=== PATIENT | male | born 1965 | race Caucasian/White ===

== ENCOUNTER 2017-01-06 12:52 | Emergency (ER) | payer BC, OTHER ==
[2017-01-06 12:59] VITALS: BP 119/72
--- NOTE | 2017-01-06 13:34 | UC ---
Rashaun Tan Thomas, [facility] for [facility] on 01/06/17 at 1326 . Ear Complaint HPI - HPI Summary HPI Summary: The pt is a 51 y/o M presenting to [facility] c/o ear pain that began 4 days ago. He reports a chronic ear infection that recurs every few months. His last infection before this was 4 months ago. He says that he normally receives an oral antibiotic for treatment. The patient denies recent swimming. The pain is described as stabbing. The pt rates the pain 2/10. The pain is aggravated and alleviated by nothing. The patient has treated the pain with nothing [employer]. PMHx: chronic right ear infection, RBBB, ventricular septal defect (closed), benign essential tremor, enlarged aorta. PSHx: appendectomy, sinus surgery 20 years ago. SHx: former smoker. FHx: CAD, CVA. His PCP is Dr. Durand. Note: VS Stable. 2/10 pain. Afebrile. Visit history noncontributory. Allergic to erythromycin. Nurses Note: righr ear pain for the last 4 days. States he has a chronic infection of the ear drum. he states his ear drum turns amin. he gets an infection every couple of months. he tried to see his pcp today but could not get in. - History of Current Complaint Chief Complaint: UCEar Stated Complaint: EAR PAIN Time Seen by Provider: 01/06/17 13:11 Hx Obtained From: Patient Onset/Duration: Lasting Days - 4, Still Present Pain Intensity: 2 Pain Scale Used: 0-10 Numeric Aggravating Factors: Nothing Alleviating Factors: Nothing Related History: Other (Noted In Comments) - Chronic ear infections. - Allergies/Home Medications Allergies/Adverse Reactions: Allergies Allergy/AdvReac Type Severity Reaction Status Date / Time Clarithromycin [From Biaxin] Allergy See Comment Verified 01/06/17 12:59 Home Medications: Home Medications Atenolol TAB* [Tenormin TAB* 25 MG] 12.5 mg PO BID 01/06/17 [History Confirmed 01/06/17] PMH/Surg Hx/FS Hx/Imm Hx Previously Healthy: No - chronic ear infections Cardiovascular History: Other Other Cardiovascular History: VSD (closed), RBBB, enlarged aorta Neurological History: Other Other Neurological History: Essential tremor - Surgical History Surgical History: Yes Surgery Procedure, Year, and Place: SINUS 20 YRS AGO, APPY AT AGE 9,HERNIA 1999 - Family History Known Family History: Positive: Cardiac Disease, Other - POS: CVA - Social History Alcohol Use: None Substance Use Type: None Smoking Status (MU): Former Smoker Review of Systems Constitutional: Negative, Other - NEG: fever Skin: Negative Eyes: Negative ENT: Ear Ache - onset four days ago. Respiratory: Negative Cardiovascular: Negative Gastrointestinal: Negative Genitourinary: Negative Motor: Negative Neurovascular: Negative Musculoskeletal: Negative Neurological: Negative Psychological: Negative All Other Systems Reviewed And Are Negative: Yes Physical Exam Triage Information Reviewed: Yes Vital Signs: Initial Vital Signs Temp 97.3 F 01/06/17 12:55 Pulse 61 01/06/17 12:55 Resp 14 01/06/17 12:55 BP 119/72 01/06/17 12:55 Vital Signs Reviewed: Yes - Additional Comments Appearance: The patient is well-appearing, is in no pain distress, and is well- nourished. Eyes: Conjunctiva are clear. ENT: THERE IS PARTIAL ERYTHEMA TO THE RIGHT TYMPANIC MEMBRANE. The hearing is grossly normal, and the pharynx is normal. There is no muffled or hoarse voice. Neck: The neck is supple and nontender. Respiratory: The chest is nontender. The lungs are clear, there are normal breath sounds, and there is no respiratory distress. Cardiovascular: Heart is regular rate and rhythm. There is no murmur. Abdomen: The abdomen is soft and nontender. There is no organomegaly. Bowel sounds: present Musculoskeletal: Strength is intact. The patient moves all extremities. Neurological: The patient is alert. Psychological: The patient displays age appropriate behavior Skin: Negative for rashes. Ear Complaint Course/Dx - Course Course Of Treatment: The patient has a Hx of chronic ear infections and presents with ear pain that began 4 days ago. Medications have been included in the original chart and reviewed. Normal BP. The patient is diagnosed with right otitis media. - Differential Dx/Diagnosis Provider Diagnoses: Right otitis media Discharge - Discharge Plan Condition: Stable Disposition: HOME Prescriptions: Amoxicillin PO (*) [Amoxicillin 875 MG (*)] 875 mg PO BID #20 tab MDD 2 Patient Education Materials: Otitis Media (ED) Referrals: Chichi Durand MD [Primary Care Provider] - Additional Instructions: WE DISCUSSED: 1. You have a right ear infection. 2. One amoxicillin, 2 times a day for 10 days. Also see instructions below. Follow up with your doctor for any new symptoms or temperature. COUGH, CONGESTION of CHEST, SINUSES OR EARS: The most important goal is to liquefy all the phlegm and get it out of your head and chest. Any illness causing cough, congestion, sore throat or sinus discomfort can be helped by doing the following: STAND UNDER SHOWER STREAM TO LOOSEN SECRETIONS. STAY AWAY FROM ANY SMOKE OR IRRITANTS. WHAT ELSE CAN HELP RELIEVE YOUR SYMPTOMS: GENERAL TYPES OF MEDICINE THAT MAY HELP DECONGESTANTS: helps relieve stuffiness and clears sinuses. Pseudoephedrine ( Sudafed or generic) is effective but you need to ask the pharmacist for it because it may be kept behind the counter. ANTIHISTAMINES: are NOT helpful in many colds and flus because they can worsen sore throat, dry eyes and mouth and cause drowsiness. Examples are diphenhydramine, doxylamine and chlorpheniramine. They can help dry you out if you are having profuse, clear drainage from the nose. EXPECTORANTS: helps thin mucous in the nose and chest, making it easier to clear the fluid out. Expectorants are in most combination cough/cold remedies and should be taken with plenty of water. Guaifenesin is the most common expectorant and it comes in pill or liquid form. Mucinex is an extended release form of guaifenesin. COUGH SUPPRESANT: reduces the body's cough reflex. Dextromethorphan is in over the counter products, but sometimes narcotics such as codeine or hydrocodone are used to suppress cough. SPECIFIC MEDICATIONS: The most important goal is to liquefy all the phlegm and get it out of your head and chest: The following medicines (in prescription form or you can buy them without prescription) may help: To help with cough: DEXTROMETHORPHAN (Vicks, Robitussin, Nyquil and other brands) To help break up phlegm: GUAIFENESIN (Mucinex, Robitussin, other brands) To help clear congestion: PSEUDOEPHEDRINE (Sudafed, Dimetapp, other brands) TRY TO CLEAR NOSE: AFRIN NASAL SPRAY: 2-3 SPRAYS PER NOSTRIL, TWICE A DAY FOR TWO DAYS ONLY. USEFUL WAYS TO FEEL BETTER WITHOUT MEDICATIONS: STAND UNDER SHOWER STREAM TO LOOSEN SECRETIONS. USE A VAPORIZOR. STAY AWAY FROM ANY SMOKE OR IRRITANTS. USE SALINE NASAL SPRAY TO KEEP FLOW OF MUCOUS FROM NOSTRILS AND SINUSES. CONSIDER USING NETI POT TO HELP WITH ALLERGIES AND CONGESTION IN THE NOSE. USE THIS THREE TIMES A WEEK. YOU CAN GET THIS AT [facility] IN [place] OR VARIOUS DRUGSTORES. DRINK LOTS OF WARM FLUIDS USEFUL HOME REMEDIES: WARM WATER GARGLES, WITH TSP OF SALT PER 8 OUNCES OF WATER, GARGLE FOR A FEW SECONDS AND SPIT OUT; GARGLE AND SPIT OUT; EVERY THREE HOURS. AND/OR: WARM WATER OR TEA, HONEY AND LEMON; 2-3 CUPS A DAY. FOR SORE THROAT: KEEP THROAT MOIST WITH LOZENGES; TEA AND HONEY. USE WARM WATER GARGLES 3-4 TIMES A DAY. FOLLOW UP: RE-CHECK IN 1O DAYS, NEEDED, IF YOU ARE NOT IMPROVING. RETURN HERE OR SEE YOUR PHYSICIAN. RE-CHECK SOONER IF INCREASED PAIN OR TEMPERATURE. The documentation as recorded by the Rashaun phma Thomas accurately reflects the service I personally performed and the decisions made by me, Chaz Noriega MD.
== END 2017-01-06 13:40 | disposition home or self-care (01) ==
LOC: UCEAST 12:52
DX: H66.91 Otitis media, unspecified, right ear (principal); Q21.0 Ventricular septal defect; I45.10 Unspecified right bundle-branch block; G25.0 Essential tremor; Z88.1 Allergy status to other antibiotic agents; Z87.891 Personal history of nicotine dependence
CPT/HCPCS: 99212; G0463

== ENCOUNTER 2017-07-07 13:41 | Emergency (ER) | payer BC ==
[2017-07-07 13:52] VITALS: BP 158/83
--- NOTE | 2017-07-07 14:02 | UC ---
Ear Complaint HPI - HPI Summary HPI Summary: Pt presents with ears feeling plugged L>R. He tells me this has been an issue for months, but he feels it is getting worse. He has tried claritin, nasal sprays, and neti pots with no relief. He was on amoxicillin at one time which provided him great relief, but symptoms returned. He has seen ENT in the past, but did not like the doctor he saw so he did not return - he is currently searching for another ENT. He has also been seen by audiology which was normal per pt. Denies fever, chills, headache, dizziness, sore throat, or sinus congestion. - History of Current Complaint Chief Complaint: UCEar Stated Complaint: EARS PLUGGED COUGH Time Seen by Provider: 07/07/17 14:02 Hx Obtained From: Patient Onset/Duration: Gradual Onset Severity Initially: Mild Severity Currently: Mild Pain Intensity: 2 Pain Scale Used: 0-10 Numeric - Allergies/Home Medications Allergies/Adverse Reactions: Allergies Allergy/AdvReac Type Severity Reaction Status Date / Time clarithromycin [From Biaxin] Allergy See Comment Verified 07/07/17 13:47 Home Medications: Home Medications Bupropion XL* [Wellbutrin XL *] 300 mg PO DAILY 07/07/17 [History Confirmed 10/19] DULoxetine DR CAP* [Cymbalta CAP*] 20 mg PO DAILY 07/07/17 [History Confirmed ] Lisinopril TAB* [Prinivil TAB*] 5 mg PO DAILY 07/07/17 [History Confirmed ] amLODIPine TAB* [Norvasc 5 mg TAB*] 10 mg PO DAILY 07/07/17 [History Confirmed 07/07/17] guaiFENesin [Mucinex] 600 mg PO BID PRN 07/07/17 [History Confirmed 07/07/17] PMH/Surg Hx/FS Hx/Imm Hx Endocrine History: Dyslipidemia Cardiovascular History: Hypertension Respiratory History: COPD, Asthma GI/ History: Gastroesophageal Reflux - Surgical History Surgical History: Yes Surgery Procedure, Year, and Place: SINUS 20 YRS AGO, APPY AT AGE 9,HERNIA 2000 - Family History Known Family History: Positive: Cardiac Disease, Other - POS: CVA - Social History Lives: With Family Alcohol Use: None Substance Use Type: None Smoking Status (MU): Former Smoker Review of Systems Constitutional: Negative Skin: Negative Eyes: Negative ENT: Other - Ears plugged Respiratory: Negative Cardiovascular: Negative Neurological: Negative Psychological: Negative All Other Systems Reviewed And Are Negative: Yes Physical Exam - Summary Physical Exam Summary: GENERAL: NAD. WDWN. No pain distress. SKIN: No rashes, sores, ulcers, masses, lesions. HEENT: Head: AT/NC Eyes: EOM intact. Conjunctiva clear without inflammation or discharge. Ears: Hearing grossly normal. TMs intact, no bulging, erythema, or edema. Nose: Nasal mucosa pink and moist. NTTP maxillary and frontal sinus. Throat: Posterior oropharynx without exudates, erythema, or tonsillar enlargement. Uvula midline. NECK: Supple. Nontender. No lymphadenopathy. CHEST: CTAB. No r/r/w. No accessory muscle use. Breathing comfortably and in no distress. CV: RRR. Pulses intact. Brisk cap refill. NEURO: Alert. CN II-XII grossly intact. PSYCH: Age appropriate behavior. Triage Information Reviewed: Yes Vital Signs: Initial Vital Signs Temp 97.7 F 07/07/17 13:43 Pulse 85 07/07/17 13:43 Resp 16 07/07/17 13:43 BP 158/83 07/07/17 13:43 Pulse Ox 97 07/07/17 13:43 Ear Complaint Course/Dx - Course Course Of Treatment: He has tried and failed multiple OTC and prescription treatments except for amoxicillin. Although there is no evidence of infection today, I will trial him with Augmentin since Amoxicillin is the only treatment that has provided him some relief. I will also refer him to Dr. Gómez for further eval - Differential Dx/Diagnosis Provider Diagnoses: Right ear decreased hearing Discharge - Discharge Plan Condition: Stable Disposition: HOME Prescriptions: Amoxicillin/Clavulanate TAB* [Augmentin TAB 875*] 875 mg PO BID #20 tab Patient Education Materials: Earache (ED) Referrals: Chichi Durand MD [Primary Care Provider] - Sung Gómez MD [Medical Doctor] - As Soon As Possible Additional Instructions: If you develop a fever, shortness of breath, chest pain, new or worsening symptoms - please call your PCP or go to the ED. Your blood pressure was high at todays visit. Please see your primary provider within 4 weeks for recheck and re-evaluation. 1) Please schedule a follow up appointment with ENT at the number below for your continued decreased hearing and earache.
== END 2017-07-07 14:20 | disposition home or self-care (01) ==
LOC: UCEAST 13:41
DX: H90.41 Sensorineural hearing loss, unilateral, right ear, with unrestricted hearing on the contralateral side (principal); E78.5 Hyperlipidemia, unspecified; I10 Essential (primary) hypertension; J44.9 Chronic obstructive pulmonary disease, unspecified; K21.9 Gastro-esophageal reflux disease without esophagitis; Z88.1 Allergy status to other antibiotic agents; Z87.891 Personal history of nicotine dependence
CPT/HCPCS: 99212; G0463

== ENCOUNTER 2019-01-11 12:31 | Emergency (ER) | payer BC ==
[2019-01-11 12:45] VITALS: BP 149/84
--- NOTE | 2019-01-11 13:28 | UC ---
General HPI - HPI Summary HPI Summary: Pleasant 53 yo gentleman presents with spouse, c/o n/v since Thursday (today is Thursday). No fever / chills. No diarrhea, brbpr, melena. No new urinary sx, although has been followed by Dr. Washington for hematuria. Denies abd pain currently but does report some periodic discomfort in R side of abdomen. No back pain. + hx childhood appedectomy with peritonitis, s/p laparotomy. Has had episodic n/v since October, but not this bad. Has been taking tegretol, last 3 weeks. Does not feel like this is a contributing issue, has not changed in nature since starting tegretol. Also reported to RN that he has been bruising more. Also reports R frontal h/a (minimal now, but was bad last week). Followed by ENT Dr. Lucia, has order for CT sinuses, which he will have done in the next couple weeks. - History of Current Complaint Chief Complaint: UCGeneralIllness Stated Complaint: NAUSEA / VOMITING / HEADACHE / BRUISING Time Seen by Provider: 01/11/19 12:41 Hx Obtained From: Patient, Family/Ivory Carver Pain Intensity: 7 - Allergy/Home Medications Allergies/Adverse Reactions: Allergies Allergy/AdvReac Type Severity Reaction Status Date / Time clarithromycin [From Biaxin] Allergy See Comment Verified 01/11/19 12:45 Home Medications: Home Medications ALPRAZolam [Xanax] 1 tab PO DAILY PRN 01/11/19 [History Confirmed 01/11/19] Acetaminophen [Mapap] 2 tab PO Q6HR PRN 01/11/19 [History Confirmed 01/11/19] Carbamazepine [Tegretol] 1 tab PO BID PRN 01/11/19 [History Confirmed 01/11/19] Fexofenadine (NF) [Jodie (NF)] 1 tab PO DAILY PRN 01/11/19 [History Confirmed 01/11/19] PMH/Surg Hx/FS Hx/Imm Hx Previously Healthy: No - see hpi and pmh - Surgical History Surgical History: Yes Surgery Procedure, Year, and Place: SINUS 20 YRS AGO, APPY AT AGE 9,HERNIA 1999 - Family History Known Family History: Positive: Cardiac Disease, Other - POS: CVA - Social History Alcohol Use: None Substance Use Type: None Smoking Status (MU): Former Smoker Review of Systems All Other Systems Reviewed And Are Negative: Yes Constitutional: Positive: Fatigue Skin: Positive: Bruising Eyes: Positive: Negative ENT: Positive: Other - see hpi Respiratory: Positive: Negative Cardiovascular: Positive: Negative - although reports that he sometimes gets palpitations not now Gastrointestinal: Positive: Other - see hpi Genitourinary: Positive: Other - see hpi Motor: Positive: Negative Neurovascular: Positive: Negative Musculoskeletal: Positive: Negative Neurological: Positive: Negative Psychological: Positive: Negative Is Patient Immunocompromised?: No Physical Exam Triage Information Reviewed: Yes Appearance: Well-Appearing - sitting up, conversing easily and appropriately. NAD., Well-Nourished Vital Signs: Initial Vital Signs Temp 97.8 F 01/11/19 12:38 Pulse 76 01/11/19 12:38 Resp 18 01/11/19 12:38 BP 149/84 01/11/19 12:38 Pulse Ox 95 01/11/19 12:38 Vital Signs Reviewed: Yes Eye Exam: Normal - grossly normal ENT: Positive: Pharynx normal, TM dull Neck exam: Normal Neck: Positive: Supple Respiratory Exam: Normal Respiratory: Positive: Chest non-tender, Lungs clear, Normal breath sounds, No respiratory distress, No accessory muscle use Cardiovascular Exam: Normal Cardiovascular: Positive: RRR, Brisk Capillary Refill Abdominal Exam: Other - + mild obese, soft, nondistended. No cvat. RLQ + large surgical scar with citricazation well formed. + BS, normal but slightly hyperactive Abd nontender to exam includind deep pressure Musculoskeletal Exam: Normal - moves x 4 ext's, gait steady Neurological Exam: Normal - grossly nonfocal Psychological Exam: Normal - conversing easily and appropriately Skin Exam: Normal - no visible or reported rash. without large hematoma noted. He does have some smaller bruising on forearms. Course/Dx - Course Course Of Treatment: Discussed coa / tx plan with pt and spouse. He does not want to go to the ED. Has several questions about workup. He is considering a CT (as prior ordered), but denies CT head / sinus here today. Agrees to blood work today, plans to f/u with PCP this week for re-evaluation and blood work review. Aware that with hx abd surgery and multiple adhesions, he could have internal problematic process that we can not directly dx with blood work. He will go to the ED for any worse or new problems. and Ms. Orozco were given the opportunity to ask several insightful questions, to which I answered to the best of my ability. - Diagnoses Provider Diagnosis: Nausea & vomiting Discharge ED - Sign-Out/Discharge Documenting (check all that apply): Patient Departure All imaging exams completed and their final reports reviewed: No Studies - Discharge Plan Condition: Stable Disposition: HOME Prescriptions: Meclizine TAB* [Antivert 12.5 TAB*] 25 mg PO TID PRN #30 tab PRN Reason: Nausea Patient Education Materials: Acute Headache (ED), Acute Nausea and Vomiting (ED ) Referrals: Chichi Durand MD [Primary Care Provider] - Additional Instructions: Follow up with Dr. Mitchell this week if possible, for recheck. Blood work today. Please go to the Emergency Department for worse or new problems. Hydrate. - Billing Disposition and Condition Condition: STABLE Disposition: Home
[2019-01-11 19:15] LABS: ABS Basophils 0.1 10^3/ul (0-0.2); ABS Eosinophils 0.1 10^3/ul (0-0.6); ABS Lymphocytes 1.8 10^3/ul (1.0-4.8); ABS Monocytes 0.7 10^3/ul (0-0.8); ABS Neutrophils 3.4 10^3/ul (1.5-7.7); Eosinophil % 1.6 %; Hematocrit 43 % (42-52); Hemoglobin 15.1 g/dL (14.0-18.0); Lymphocyte % 29.5 %; Mean Corpuscular HGB Conc 35 g/dL (31-36); Mean Corpuscular Hemoglobin 33 pg (27-31); Mean Corpuscular Volume 94 fL (80-94); Mean Platelet Volume 7.2 fL (7.4-10.4); Platelet Count 361 10^3/uL (150-450); Red Blood Count 4.63 10^6 /uL (4.18-5.48); Red Cell Distribution Width 13 % (10-15); White Blood Count 6.2 10^3/uL (3.5-10.8)
[2019-01-11 19:26] LABS: Albumin 4.4 g/dL (3.2-5.2); Calcium 9.3 mg/dL (8.6-10.3); Potassium 4.3 mmol/L (3.5-5.0); Total Bilirubin 0.4 mg/dL (0.2-1.0)
[2019-01-11 19:32] LABS: Albumin/Globulin Ratio 2.1 (1-3); BUN/Creatinine Ratio 15.9 (8-20); C Reactive Protein 1.56 mg/L (<8.01); EGFR African American 145.1 (>60); EGFR Non-African American 119.9 (>60); Globulin 2.1 g/dL (2-4); Total Protein 6.5 g/dL (6.4-8.9)
== END 2019-01-11 13:52 | disposition home or self-care (01) ==
LOC: UCEAST 12:31
DX: R11.2 Nausea with vomiting, unspecified (principal); Z87.891 Personal history of nicotine dependence
CPT/HCPCS: 36415; 80053; 83690; 85025; 86140; 99212; G0463

== ENCOUNTER 2019-02-16 14:22 | Emergency (ER) | payer BC ==
[2019-02-16 14:32] VITALS: BP 130/80
--- NOTE | 2019-02-16 15:15 | UC ---
UC General HPI - HPI Summary HPI Summary: 53-year-old male here with a chief complaint of headache and abdominal pain. In October 2018 patient started with right sided frontal headaches that were compared with nausea and vomiting which then led to right upper quadrant abdominal pain. Each episode lasts about a day or day and a half. He has a couple of these every month. He seen his primary care physician and had a normal head CT with and without contrast on February 11, 2019. Also had abdominal x-rays done today. Both of these were ordered outpatient by his primary care doctor. Patient also has abdominal ultrasound ordered by his primary care physician. This particular episode of the headache and abdominal pain started 2 days ago. At its worst the headache as 7 out of 10 in the abdominal pain similar. No fevers or chills. His symptoms are much improved this morning now has headaches about a 2 out of 10 which he says is negligible. No complaint of any abdominal pain. He has been able to eat this morning. Patient still has his gallbladder. Patient has a history of migraine headaches in the trigeminal distribution on the right side is on Tegretol for that. These headaches are similar distribution however there more focal in the right frontal area. Also similar in character. - History of Current Complaint Chief Complaint: UCGI Stated Complaint: vomiting and abdominal pain Pain Intensity: 5 - Allergy/Home Medications Allergies/Adverse Reactions: Allergies Allergy/AdvReac Type Severity Reaction Status Date / Time clarithromycin [From Biaxin] Allergy See Comment Verified 02/16/19 14:33 PMH/Surg Hx/FS Hx/Imm Hx Previously Healthy: Yes Cardiovascular History: Hypertension Neurological History: Migraine - Surgical History Surgical History: Yes Surgery Procedure, Year, and Place: SINUS 20 YRS AGO, APPY AT AGE 9, umbilical HERNIA 1999 - Family History Known Family History: Positive: Cardiac Disease, Other - POS: CVA - Social History Alcohol Use: None Substance Use Type: None Smoking Status (MU): Former Smoker Review of Systems All Other Systems Reviewed And Are Negative: Yes Constitutional: Positive: Negative Skin: Positive: Bruising Eyes: Positive: Other - see hpi ENT: Positive: Negative Respiratory: Positive: Negative Cardiovascular: Positive: Negative Gastrointestinal: Positive: Abdominal Pain, Vomiting, Nausea Genitourinary: Positive: Negative Motor: Positive: Negative Neurovascular: Positive: Negative Musculoskeletal: Positive: Negative Neurological: Positive: Headache Psychological: Positive: Negative Is Patient Immunocompromised?: No Physical Exam Triage Information Reviewed: Yes Appearance: Well-Appearing, No Pain Distress, Well-Nourished Vital Signs: Initial Vital Signs Temp 97.8 F 02/16/19 14:26 Pulse 81 02/16/19 14:26 Resp 18 02/16/19 14:26 BP 130/80 02/16/19 14:26 Pulse Ox 97 02/16/19 14:26 Vital Signs Reviewed: Yes Eye Exam: Normal Eyes: Positive: Conjunctiva Clear, Other: - PERRLA EOMI no photophobia. No visual field deficits. ENT: Positive: Pharynx normal, TMs normal Neck: Positive: Supple Respiratory: Positive: Lungs clear, Normal breath sounds, No respiratory distress Cardiovascular: Positive: RRR Abdomen Description: Positive: Soft, Other: - Mild tenderness to palpation right upper quadrant no rebound. Musculoskeletal: Positive: Strength Intact, ROM Intact Neurological: Positive: Alert Psychological: Positive: Normal Response To Family, Age Appropriate Behavior Skin Exam: Normal Course/Dx - Course Course Of Treatment: In clinic patients improved from his most recent episode of the headache in the right upper quadrant pain. The plan is to check lab work. Patient satisfied with his outpatient ultrasound going through his primary care doctor and not doing an ultrasound today. Labs are pending are CBC, CMP, lipase, cretin kinase , PT/INR, Tegretol and Geodon. At this time the patient's vital signs are stable his pain is minimal he's tolerating by mouth. I let him know that if anything got worse with fevers pain or any other worsening of his symptoms he should go directly to the emergency department otherwise he'll follow-up his primary care physician. - Diagnoses Provider Diagnosis: Headache, Abdominal pain, right upper quadrant Discharge ED - Sign-Out/Discharge Documenting (check all that apply): Patient Departure All imaging exams completed and their final reports reviewed: No Studies - Discharge Plan Condition: Stable Disposition: HOME Patient Education Materials: Acute Headache (ED), Acute Abdominal Pain (ED) Referrals: Chichi Durand MD [Primary Care Provider] - Additional Instructions: FOLLOW UP WITH YOUR DOCTOR. GO TO THE EMERGENCY DEPARTMENT IF YOUR CONDITION WORSENS; PAIN, FEVER, DEHYDRATION, YOU FEEL ILL OR ANY QUESTIONS OR CONCERNS. - Billing Disposition and Condition Condition: STABLE Disposition: Home
== END 2019-02-16 15:45 | disposition home or self-care (01) ==
LOC: UCEAST 14:22
DX: R51 Headache (principal); I10 Essential (primary) hypertension; R10.11 Right upper quadrant pain; R11.2 Nausea with vomiting, unspecified; Z88.1 Allergy status to other antibiotic agents; Z87.891 Personal history of nicotine dependence
CPT/HCPCS: 99211; G0463

== ENCOUNTER 2020-03-09 20:53 | Inpatient (IN) ==
[~2020-03-09 20:53] MED LIST: Al Hydrox/Mg Hydrox/Simet LIQ 30 ML UDC PO PRN
[2020-03-09] MEDS ORDERED: Haloperidol 5 mg/ml SDV IV/IM 5 MG/ML AMP IM ONE (22:15)
[2020-03-09] MEDS ORDERED: diPHENhydraMINE IV 50 MG/ML 1 ml VIAL (BENADRYL) IM ONE (22:15)
[2020-03-09] MEDS ORDERED: Lorazepam PYXIS KEY PRN (22:16)
[2020-03-09] MEDS ORDERED: LORazepam 2 mg VIAL 1 ml IM ONE (22:16)
[2020-03-09] MEDS ORDERED: Lorazepam PYXIS KEY ONE (22:22)
[2020-03-09 23:21] LABS: ABS Basophils 0.1 10^3/ul (0-0.2); ABS Eosinophils 0.4 10^3/ul (0-0.6); ABS Monocytes 1.1 10^3/ul (0-0.8); ABS Neutrophils 10.3 10^3/ul (1.5-7.7); Eosinophil % 3.2 %; Hematocrit 42 % (42-52); Hemoglobin 14.6 g/dL (14.0-18.0); Lymphocyte % 7.9 %; Mean Corpuscular HGB Conc 35 g/dL (31-36); Mean Corpuscular Hemoglobin 33 pg (27-31); Mean Corpuscular Volume 95 fL (80-94); Mean Platelet Volume 7.3 fL (7.4-10.4); Platelet Count 320 10^3/uL (150-450); Red Cell Distribution Width 13 % (10-15); White Blood Count 12.9 10^3/uL (3.5-10.8)
[2020-03-09 23:48] LABS: ALT 18 U/L (7-52); AST 19 U/L (13-39); Acetaminophen < 15 mcg/mL; Albumin 3.8 g/dL (3.2-5.2); Albumin/Globulin Ratio 1.4 (1-3); Alcohol, S < 10 mg/dL (<10); Alkaline Phosphatase 64 U/L (34-104); Anion Gap 6 mmol/L (2-11); BUN/Creatinine Ratio 23.3 (8-20); Blood Urea Nitrogen 17 mg/dL (6-24); CO2 Carbon Dioxide 28 mmol/L (22-32); Calcium 9.4 mg/dL (8.6-10.3); Chloride 104 mmol/L (101-111); EGFR African American 135.5 (>60); Globulin 2.7 g/dL (2-4); Glucose 115 mg/dL (70-100); Potassium 3.9 mmol/L (3.5-5.0); Salicylate < 2.50 mg/dL (<30); Sodium 138 mmol/L (135-145); Total Protein 6.5 g/dL (6.4-8.9)
[2020-03-10 00:02] LABS: TSH Ultra Thyroid Stim Horm 1.37 mcIU/mL (0.34-5.60)
[2020-03-10] MEDS ORDERED: Nicotine GUM 2MG FRUIT FLAVOR PO PRN (03:00)
[2020-03-10] MEDS: DULoxetine DR 30 mg CAP PO SCH (09:57)
[2020-03-10] MEDS: Fluticasone NASAL SPRAY 50MCG 16 gm SPRAY BTL BOTH NARES SCH ×2 (09:57→20:57)
[2020-03-10] MEDS: Vitamin THERAPEUTIC TAB PO SCH (09:57)
[2020-03-10] MEDS: Cholecalciferol (VIT D3) 1,000 unit TAB PO SCH (09:57)
[2020-03-10] MEDS: carBAMazepine ER 100mg TAB PO SCH ×2 (09:57→20:57)
[2020-03-10] MEDS: FLUOCINOLONE ACETONIDE OIL OTIC SCH ×2 (09:58→21:05)
[2020-03-10] MEDS: BREXPIPRAZOLE 2 MG PO SCH (09:58)
[2020-03-10] MEDS: Nicotine PATCH 21 MG/24 HR PATCH TRANSDERM SCH (09:58)
[2020-03-11] MEDS: DULoxetine DR 30 mg CAP PO SCH (08:32)
[2020-03-11] MEDS: Vitamin THERAPEUTIC TAB PO SCH (08:33)
[2020-03-11] MEDS: Cholecalciferol (VIT D3) 1,000 unit TAB PO SCH (08:34)
[2020-03-11] MEDS: BREXPIPRAZOLE 2 MG PO SCH (08:35)
[2020-03-11] MEDS: carBAMazepine ER 100mg TAB PO SCH ×2 (08:35→20:31)
[2020-03-11] MEDS: Fluticasone NASAL SPRAY 50MCG 16 gm SPRAY BTL BOTH NARES SCH ×2 (08:36→20:34)
[2020-03-11] MEDS: Nicotine PATCH 21 MG/24 HR PATCH TRANSDERM SCH (08:37)
[2020-03-11] MEDS: FLUOCINOLONE ACETONIDE OIL OTIC SCH ×2 (09:51→19:13)
[2020-03-12] MEDS: BREXPIPRAZOLE 2 MG PO SCH (09:45)
[2020-03-12] MEDS: carBAMazepine ER 100mg TAB PO SCH (09:46)
[2020-03-12] MEDS: Vitamin THERAPEUTIC TAB PO SCH (09:48)
[2020-03-12] MEDS: Cholecalciferol (VIT D3) 1,000 unit TAB PO SCH (09:48)
[2020-03-12] MEDS: FLUOCINOLONE ACETONIDE OIL OTIC SCH ×2 (09:49→21:43)
[2020-03-12] MEDS: Nicotine PATCH 21 MG/24 HR PATCH TRANSDERM SCH (09:49)
[2020-03-12] MEDS: Fluticasone NASAL SPRAY 50MCG 16 gm SPRAY BTL BOTH NARES SCH (09:49)
[2020-03-13] MEDS: carBAMazepine ER 100mg TAB PO SCH ×3 (00:28→21:05)
[2020-03-13] MEDS: Fluticasone NASAL SPRAY 50MCG 16 gm SPRAY BTL BOTH NARES SCH ×3 (00:29→21:04)
[2020-03-13 08:05] LABS: HDL Cholesterol 44.2 mg/dL
[2020-03-13] MEDS ORDERED: BREXPIPRAZOLE 2 MG PO SCH (09:00)
[2020-03-13] MEDS: BREXPIPRAZOLE 2 MG PO SCH (09:44)
[2020-03-13] MEDS: Cholecalciferol (VIT D3) 1,000 unit TAB PO SCH (09:50)
[2020-03-13] MEDS: Nicotine PATCH 21 MG/24 HR PATCH TRANSDERM SCH (09:51)
[2020-03-13] MEDS: FLUOCINOLONE ACETONIDE OIL OTIC SCH ×2 (09:51→19:33)
[2020-03-13] MEDS: Vitamin THERAPEUTIC TAB PO SCH (12:42)
[2020-03-14] MEDS: Fluticasone NASAL SPRAY 50MCG 16 gm SPRAY BTL BOTH NARES SCH ×2 (08:38→20:42)
[2020-03-14] MEDS: Vitamin THERAPEUTIC TAB PO SCH (08:38)
[2020-03-14] MEDS: Cholecalciferol (VIT D3) 1,000 unit TAB PO SCH (08:40)
[2020-03-14] MEDS: carBAMazepine ER 100mg TAB PO SCH ×2 (08:41→20:40)
[2020-03-14] MEDS: FLUOCINOLONE ACETONIDE OIL OTIC SCH ×2 (08:42→21:17)
[2020-03-14] MEDS: Nicotine PATCH 21 MG/24 HR PATCH TRANSDERM SCH (08:42)
[2020-03-14] MEDS: BREXPIPRAZOLE 2 MG PO SCH (08:42)
[2020-03-15] MEDS: Fluticasone NASAL SPRAY 50MCG 16 gm SPRAY BTL BOTH NARES SCH ×2 (09:52→20:13)
[2020-03-15] MEDS: BREXPIPRAZOLE 2 MG PO SCH ×2 (09:54→20:11)
[2020-03-15] MEDS: carBAMazepine ER 100mg TAB PO SCH ×2 (09:56→20:10)
[2020-03-15] MEDS: Cholecalciferol (VIT D3) 1,000 unit TAB PO SCH (09:56)
[2020-03-15] MEDS: Vitamin THERAPEUTIC TAB PO SCH (09:57)
[2020-03-15] MEDS: Nicotine PATCH 21 MG/24 HR PATCH TRANSDERM SCH (09:59)
[2020-03-15] MEDS: FLUOCINOLONE ACETONIDE OIL OTIC SCH ×2 (10:00→20:35)
[2020-03-16] MEDS: Cholecalciferol (VIT D3) 1,000 unit TAB PO SCH (09:25)
[2020-03-16] MEDS: carBAMazepine ER 100mg TAB PO SCH ×2 (09:25→20:46)
[2020-03-16] MEDS: Vitamin THERAPEUTIC TAB PO SCH (09:25)
[2020-03-16] MEDS: BREXPIPRAZOLE 2 MG PO SCH (09:26)
[2020-03-16] MEDS: Fluticasone NASAL SPRAY 50MCG 16 gm SPRAY BTL BOTH NARES SCH ×2 (09:28→20:47)
[2020-03-16] MEDS: FLUOCINOLONE ACETONIDE OIL OTIC SCH ×2 (09:28→20:49)
[2020-03-16] MEDS: Nicotine PATCH 21 MG/24 HR PATCH TRANSDERM SCH (09:28)
[2020-03-16] MEDS ORDERED: BREXPIPRAZOLE 2 MG PO ONE (10:36)
[2020-03-17] MEDS: carBAMazepine ER 100mg TAB PO SCH ×2 (07:55→20:04)
[2020-03-17] MEDS: Cholecalciferol (VIT D3) 1,000 unit TAB PO SCH (07:56)
[2020-03-17] MEDS: Vitamin THERAPEUTIC TAB PO SCH (07:56)
[2020-03-17] MEDS: Nicotine PATCH 21 MG/24 HR PATCH TRANSDERM SCH (07:56)
[2020-03-17] MEDS: Fluticasone NASAL SPRAY 50MCG 16 gm SPRAY BTL BOTH NARES SCH ×2 (07:56→20:04)
[2020-03-17] MEDS: FLUOCINOLONE ACETONIDE OIL OTIC SCH ×2 (07:56→21:20)
[2020-03-17] MEDS: BREXPIPRAZOLE 2 MG PO SCH (08:01)
[2020-03-18] MEDS: Fluticasone NASAL SPRAY 50MCG 16 gm SPRAY BTL BOTH NARES SCH ×2 (09:05→20:03)
[2020-03-18] MEDS: BREXPIPRAZOLE 2 MG PO SCH (09:05)
[2020-03-18] MEDS: carBAMazepine ER 100mg TAB PO SCH ×2 (09:05→20:03)
[2020-03-18] MEDS: Cholecalciferol (VIT D3) 1,000 unit TAB PO SCH (09:05)
[2020-03-18] MEDS: Vitamin THERAPEUTIC TAB PO SCH (09:06)
[2020-03-18] MEDS: Nicotine PATCH 21 MG/24 HR PATCH TRANSDERM SCH (09:06)
[2020-03-18] MEDS: FLUOCINOLONE ACETONIDE OIL OTIC SCH ×2 (09:06→20:07)
[2020-03-19] MEDS: Fluticasone NASAL SPRAY 50MCG 16 gm SPRAY BTL BOTH NARES SCH ×2 (08:52→20:46)
[2020-03-19] MEDS: BREXPIPRAZOLE 2 MG PO SCH (08:52)
[2020-03-19] MEDS: Cholecalciferol (VIT D3) 1,000 unit TAB PO SCH (08:53)
[2020-03-19] MEDS: carBAMazepine ER 100mg TAB PO SCH ×2 (08:53→20:45)
[2020-03-19] MEDS: Vitamin THERAPEUTIC TAB PO SCH (08:53)
[2020-03-19] MEDS: Nicotine PATCH 21 MG/24 HR PATCH TRANSDERM SCH (08:56)
[2020-03-19] MEDS: FLUOCINOLONE ACETONIDE OIL OTIC SCH ×2 (08:57→20:48)
[2020-03-20] MEDS: carBAMazepine ER 100mg TAB PO SCH (08:26)
[2020-03-20] MEDS: Vitamin THERAPEUTIC TAB PO SCH (08:28)
[2020-03-20] MEDS: Cholecalciferol (VIT D3) 1,000 unit TAB PO SCH (08:29)
[2020-03-20] MEDS: BREXPIPRAZOLE 2 MG PO SCH (08:29)
[2020-03-20] MEDS: Fluticasone NASAL SPRAY 50MCG 16 gm SPRAY BTL BOTH NARES SCH (08:31)
[2020-03-20] MEDS: Nicotine PATCH 21 MG/24 HR PATCH TRANSDERM SCH (08:33)
[2020-03-20] MEDS: FLUOCINOLONE ACETONIDE OIL OTIC SCH (08:33)
[2020-03-20 10:09] VITALS: BP 147/82
== END 2020-03-20 12:38 | disposition home or self-care (01) | DRG 750 ==
LOC: ED 20:53 → BSU 23:30
PROVIDERS: ADMIT Psychiatry & Neurology Psychiatry; ATTEND Psychiatry & Neurology Psychiatry

== ENCOUNTER 2020-10-30 14:34 | Inpatient (IN) ==
[2020-10-30 15:38] LABS: ABS Basophils 0.1 10^3/ul (0-0.2); ABS Eosinophils 0.6 10^3/ul (0-0.6); ABS Lymphocytes 1.5 10^3/ul (1.0-4.8); ABS Monocytes 1.1 10^3/ul (0-0.8); ABS Neutrophils 6.2 10^3/ul (1.5-7.7); Hematocrit 37 % (42-52); Hemoglobin 13.1 g/dL (14.0-18.0); Lymphocyte % 16.2 %; Mean Corpuscular HGB Conc 35 g/dL (31-36); Mean Corpuscular Hemoglobin 33 pg (27-31); Mean Corpuscular Volume 96 fL (80-94); Platelet Count 370 10^3/uL (150-450); Red Blood Count 3.92 10^6 /uL (4.18-5.48); Red Cell Distribution Width 14 % (10-15); White Blood Count 9.5 10^3/uL (3.5-10.8)
[2020-10-30 15:40] LABS: Urine Appearance Clear; Urine Bilirubin Negative (Negative); Urine Blood 1+ (Negative); Urine Color Yellow; Urine Glucose Negative (Negative); Urine Ketones Negative (Negative); Urine Nitrite Negative (Negative); Urine Protein Negative (Negative); Urine Specific Gravity 1.005 (1.002-1.030); Urine Urobilinogen Negative (Negative)
[2020-10-30 15:43] LABS: Urine Bacteria Absent (Absent); Urine Red Blood Cell Trace(0-2/hpf) (Absent); Urine Squamous Epithelial Cell Present (Absent); Urine White Blood Cell Absent (Absent)
[2020-10-30 16:09] LABS: TSH Ultra Thyroid Stim Horm 1.69 mcIU/mL (0.34-5.60)
[2020-10-30 16:16] LABS: ALT 16 U/L (7-52); AST 26 U/L (13-39); Albumin 3.8 g/dL (3.2-5.2); Albumin/Globulin Ratio 1.7 (1-3); Alkaline Phosphatase 80 U/L (35-149); Anion Gap 6 mmol/L (2-11); Blood Urea Nitrogen 10 mg/dL (6-24); CO2 Carbon Dioxide 29 mmol/L (22-32); Calcium 9.2 mg/dL (8.6-10.3); Chloride 103 mmol/L (101-111); EGFR African American 169.3 (>60); EGFR Non-African American 139.9 (>60); Globulin 2.3 g/dL (2-4); Glucose 132 mg/dL (70-100); Potassium 3.3 mmol/L (3.5-5.0); Sodium 138 mmol/L (135-145); Total Protein 6.1 g/dL (6.4-8.9)
[2020-10-30 16:19] LABS: Alcohol, S < 10 mg/dL (<10); Salicylate < 2.50 mg/dL (<30)
[2020-10-30 16:20] LABS: Acetaminophen < 15 mcg/mL; Urine Benzodiazepine Screen None Detected (None Detect); Urine Cannabinoids Screen None Detected (None Detect); Urine Opiates Screen None Detected (None Detect)
[2020-10-30] MEDS ORDERED: LORazepam 2 mg VIAL 1 ml ONE (17:23)
[2020-10-30] MEDS ORDERED: Lorazepam PYXIS KEY PRN (17:25)
[2020-10-30] MEDS ORDERED: LORazepam 2 mg VIAL 1 ml IM ONE (17:25)
[2020-10-30] MEDS ORDERED: Haloperidol 5 mg/ml SDV IV/IM 5 MG/ML AMP IM ONE (17:25)
[2020-10-30] MEDS ORDERED: diPHENhydraMINE IV 50 MG/ML 1 ml VIAL (BENADRYL) IM ONE (17:25)
[2020-10-30] MEDS ORDERED: Al Hydrox/Mg Hydrox/Simet LIQ 30 ML UDC PO PRN (22:14)
[2020-10-31] MEDS: Vitamin THERAPEUTIC TAB PO SCH ×2 (08:57→09:27)
[2020-10-31] MEDS: Potassium Chlor 10 meq TAB PO SCH (12:20)
[2020-10-31] MEDS ORDERED: BREXPIPRAZOLE 4 MG PO SCH (14:00)
[2020-10-31 19:52] LABS: Total Iron Binding Capacity 371 mcg/dL (250-450); Transferrin 265 mg/dL (203-362)
[2020-10-31 21:01] LABS: Free T4 1.11 ng/dL (0.61-1.12)
[2020-11-01] MEDS: Potassium Chlor 10 meq TAB PO SCH (09:25)
[2020-11-01] MEDS: Vitamin THERAPEUTIC TAB PO SCH (09:25)
[2020-11-01] MEDS: BREXPIPRAZOLE 2 MG PO SCH (12:59)
[2020-11-01 15:17] LABS: Albumin/Globulin Ratio 1.6 (1-3); Calcium 9.3 mg/dL (8.6-10.3); EGFR Non-African American 145.5 (>60); Globulin 2.5 g/dL (2-4); HDL Cholesterol 49.2 mg/dL; Potassium 3.9 mmol/L (3.5-5.0); Total Bilirubin 0.4 mg/dL (0.2-1.0); Total Protein 6.5 g/dL (6.4-8.9)
[2020-11-02] MEDS: BREXPIPRAZOLE 2 MG PO SCH (09:39)
[2020-11-02] MEDS: Potassium Chlor 10 meq TAB PO SCH (09:39)
[2020-11-02] MEDS: Vitamin THERAPEUTIC TAB PO SCH (09:40)
[2020-11-03] MEDS: Vitamin THERAPEUTIC TAB PO SCH (08:31)
[2020-11-03] MEDS: BREXPIPRAZOLE 2 MG PO SCH (08:31)
[2020-11-03] MEDS: Potassium Chlor 10 meq TAB PO SCH (08:31)
[2020-11-03] MEDS: Nicotine PATCH 7 MG/24 HR PATCH TRANSDERM SCH (20:22)
[2020-11-04] MEDS: Nicotine PATCH 7 MG/24 HR PATCH TRANSDERM SCH (07:47)
[2020-11-04] MEDS: BREXPIPRAZOLE 2 MG PO SCH (07:49)
[2020-11-04] MEDS: Potassium Chlor 10 meq TAB PO SCH (07:49)
[2020-11-04] MEDS: Vitamin THERAPEUTIC TAB PO SCH (07:49)
[2020-11-05] MEDS: Potassium Chlor 10 meq TAB PO SCH (09:33)
[2020-11-05] MEDS: Vitamin THERAPEUTIC TAB PO SCH (09:34)
[2020-11-05] MEDS: BREXPIPRAZOLE 2 MG PO SCH (09:34)
[2020-11-05] MEDS: Nicotine PATCH 7 MG/24 HR PATCH TRANSDERM SCH (09:35)
[2020-11-05] MEDS ORDERED: BREXPIPRAZOLE 0.5 MG PO ONE (10:04)
[2020-11-06] MEDS: Vitamin THERAPEUTIC TAB PO SCH (08:46)
[2020-11-06] MEDS: BREXPIPRAZOLE 2 MG PO SCH (08:46)
[2020-11-06] MEDS: BREXPIPRAZOLE 0.5 MG PO SCH (08:46)
[2020-11-06] MEDS: Potassium Chlor 10 meq TAB PO SCH (08:46)
[2020-11-06] MEDS: Nicotine PATCH 7 MG/24 HR PATCH TRANSDERM SCH (08:47)
[2020-11-07] MEDS: Potassium Chlor 10 meq TAB PO SCH (08:39)
[2020-11-07] MEDS: Vitamin THERAPEUTIC TAB PO SCH (08:39)
[2020-11-07] MEDS: BREXPIPRAZOLE 2 MG PO SCH (08:40)
[2020-11-07] MEDS: Nicotine PATCH 7 MG/24 HR PATCH TRANSDERM SCH (08:41)
[2020-11-07] MEDS: BREXPIPRAZOLE 0.5 MG PO SCH (09:35)
[2020-11-08 08:51] LABS: Calcium 9.6 mg/dL (8.6-10.3); EGFR Non-African American 145.5 (>60); Potassium 4.3 mmol/L (3.5-5.0)
[2020-11-08] MEDS: BREXPIPRAZOLE 0.5 MG PO SCH (10:15)
[2020-11-08] MEDS: BREXPIPRAZOLE 2 MG PO SCH (10:15)
[2020-11-08] MEDS: Potassium Chlor 10 meq TAB PO SCH (10:16)
[2020-11-08] MEDS: Nicotine PATCH 7 MG/24 HR PATCH TRANSDERM SCH (10:16)
[2020-11-08] MEDS: Vitamin THERAPEUTIC TAB PO SCH (10:16)
[2020-11-09] MEDS: BREXPIPRAZOLE 2 MG PO SCH (08:41)
[2020-11-09] MEDS: Potassium Chlor 10 meq TAB PO SCH (08:41)
[2020-11-09] MEDS: BREXPIPRAZOLE 0.5 MG PO SCH (08:41)
[2020-11-09] MEDS: Vitamin THERAPEUTIC TAB PO SCH (08:41)
[2020-11-09] MEDS: Nicotine PATCH 7 MG/24 HR PATCH TRANSDERM SCH (08:43)
[2020-11-09 21:02] LABS: ABS Lymphocytes 0.8 10^3/ul (1.0-4.8); ABS Monocytes 1.2 10^3/ul (0-0.8); ABS Neutrophils 5.8 10^3/ul (1.5-7.7); Eosinophil % 0.1 %; Hematocrit 43 % (42-52); Hemoglobin 14.5 g/dL (14.0-18.0); Lymphocyte % 10.4 %; Mean Corpuscular HGB Conc 34 g/dL (31-36); Mean Corpuscular Hemoglobin 33 pg (27-31); Mean Corpuscular Volume 95 fL (80-94); Mean Platelet Volume 6.9 fL (7.4-10.4); Platelet Count 329 10^3/uL (150-450); Red Blood Count 4.47 10^6 /uL (4.18-5.48); Red Cell Distribution Width 13 % (10-15); White Blood Count 7.8 10^3/uL (3.5-10.8)
[2020-11-09 21:24] LABS: Urine TP Concentration < 4 mg/dL
[2020-11-09 21:28] LABS: Urine Appearance Clear; Urine Bilirubin Negative (Negative); Urine Blood 2+ (Negative); Urine Color Straw; Urine Creatinine Concentration 19.28 mg/dL; Urine Glucose Negative (Negative); Urine Ketones Negative (Negative); Urine Nitrite Negative (Negative); Urine Protein Negative (Negative); Urine Specific Gravity 1.004 (1.002-1.030); Urine Urobilinogen Negative (Negative)
[2020-11-09 21:33] LABS: Urine Bacteria Absent (Absent); Urine Red Blood Cell Trace(0-2/hpf) (Absent); Urine White Blood Cell Absent (Absent)
[2020-11-10 15:56] LABS: ABS Lymphocytes 0.6 10^3/ul (1.0-4.8); ABS Monocytes 1.2 10^3/ul (0-0.8); ABS Neutrophils 5.5 10^3/ul (1.5-7.7); Eosinophil % 0.1 %; Hematocrit 43 % (42-52); Hemoglobin 14.9 g/dL (14.0-18.0); Lymphocyte % 8.4 %; Mean Corpuscular HGB Conc 35 g/dL (31-36); Mean Corpuscular Hemoglobin 33 pg (27-31); Mean Corpuscular Volume 94 fL (80-94); Mean Platelet Volume 7.1 fL (7.4-10.4); Platelet Count 297 10^3/uL (150-450); Red Blood Count 4.55 10^6 /uL (4.18-5.48); Red Cell Distribution Width 14 % (10-15); White Blood Count 7.3 10^3/uL (3.5-10.8)
[2020-11-10 16:13] LABS: Albumin 4.1 g/dL (3.2-5.2); Albumin/Globulin Ratio 1.5 (1-3); Calcium 9.6 mg/dL (8.6-10.3); EGFR African American 130.8 (>60); EGFR Non-African American 108.1 (>60); Globulin 2.8 g/dL (2-4); Magnesium 1.9 mg/dL (1.9-2.7); Potassium 3.6 mmol/L (3.5-5.0); Total Bilirubin 0.4 mg/dL (0.2-1.0); Total Protein 6.9 g/dL (6.4-8.9)
[2020-11-10 16:14] LABS: CRP High Sensitivity 83.3 mg/L (<2.00); Troponin I 0.01 ng/mL (<0.03)
[2020-11-10 16:38] LABS: Urine Appearance Clear; Urine Bilirubin Negative (Negative); Urine Blood 2+ (Negative); Urine Color Straw; Urine Glucose Negative (Negative); Urine Ketones Negative (Negative); Urine Nitrite Negative (Negative); Urine Protein Negative (Negative); Urine Specific Gravity 1.002 (1.002-1.030); Urine Urobilinogen Negative (Negative)
[2020-11-10 16:40] LABS: Urine Amorphous Crystals Present (Absent); Urine Bacteria Absent (Absent); Urine Red Blood Cell Trace(0-2/hpf) (Absent); Urine Squamous Epithelial Cell Present (Absent); Urine White Blood Cell Absent (Absent)
[2020-11-10] MEDS ORDERED: Lactated Ringers 1000 ml BAG 1,000 ML IV ONE (16:41)
[2020-11-10] MEDS: BREXPIPRAZOLE 0.5 MG PO SCH (17:14)
[2020-11-10] MEDS: BREXPIPRAZOLE 2 MG PO SCH (17:14)
[2020-11-10] MEDS: Potassium Chlor 10 meq TAB PO SCH (17:15)
[2020-11-10] MEDS: Nicotine PATCH 7 MG/24 HR PATCH TRANSDERM SCH (17:15)
[2020-11-10] MEDS: Vitamin THERAPEUTIC TAB PO SCH (17:16)
[2020-11-11 07:28] LABS: ABS Lymphocytes 0.6 10^3/ul (1.0-4.8); ABS Monocytes 1.2 10^3/ul (0-0.8); Eosinophil % 0.1 %; Hematocrit 43 % (42-52); Lymphocyte % 7.4 %; Mean Corpuscular HGB Conc 35 g/dL (31-36); Mean Corpuscular Hemoglobin 33 pg (27-31); Mean Corpuscular Volume 94 fL (80-94); Mean Platelet Volume 6.9 fL (7.4-10.4); Platelet Count 290 10^3/uL (150-450); Red Blood Count 4.57 10^6 /uL (4.18-5.48); Red Cell Distribution Width 14 % (10-15); White Blood Count 7.9 10^3/uL (3.5-10.8)
[2020-11-11 10:32] LABS: Activated Partial Thrombo Time 40.6 seconds (26.0-38.0); INR 1.13 (0.86-1.15)
[2020-11-11 11:24] LABS: Rheumatoid Factor 12 IU/mL (<15)
[2020-11-11] MEDS: Nicotine PATCH 7 MG/24 HR PATCH TRANSDERM SCH (11:31)
[2020-11-11] MEDS: Vitamin THERAPEUTIC TAB PO SCH (11:31)
[2020-11-11] MEDS: Potassium Chlor 10 meq TAB PO SCH (11:31)
[2020-11-11] MEDS: BREXPIPRAZOLE 2 MG PO SCH (11:33)
[2020-11-11] MEDS: BREXPIPRAZOLE 0.5 MG PO SCH (11:33)
[2020-11-11] MEDS ORDERED: Midazolam 2 mg/2 ml VIAL 1 mg/ml 2 ml VIAL (2 mg) ONE (12:48)
[2020-11-11 13:31] LABS: Body Fluid Source Cerebral Spinal
[2020-11-11 13:44] LABS: CSF Glucose 74 mg/dL (40-70)
[2020-11-11 14:05] LABS: Body Fluid Appearance Clear; Body Fluid Color Colorless; Body Fluid WBC 2 /mcL; CSF Tube # 4
[2020-11-11 14:23] LABS: Body Fluid Mono 20 %; Body Fluid Total Cells Counted 5
[2020-11-11] MEDS ORDERED: Lorazepam PYXIS KEY PRN ×2 (19:12→20:36)
[2020-11-11] MEDS ORDERED: LORazepam 2 mg VIAL 1 ml IV PUSH ONE (19:13)
[2020-11-11] MEDS ORDERED: methylPREDNISolone 125 mg 2 ML VIAL IV ONE (19:50)
[2020-11-11] MEDS ORDERED: LORazepam 2 mg VIAL 1 ml IV PUSH PRN (20:36)
[2020-11-11 22:27] LABS: Vitamin B12 602 pg/mL (180-914)
[2020-11-11 23:53] LABS: RBC Parasite Smear No Parasites Seen (No Parasite)
[2020-11-12] MEDS ORDERED: LORazepam 2 mg VIAL 1 ml IV PUSH PRN (06:34)
[2020-11-12 07:08] LABS: ABS Lymphocytes 0.4 10^3/ul (1.0-4.8); ABS Monocytes 0.5 10^3/ul (0-0.8); ABS Neutrophils 5.6 10^3/ul (1.5-7.7); Hematocrit 40 % (42-52); Hemoglobin 14.5 g/dL (14.0-18.0); Lymphocyte % 6.6 %; Mean Corpuscular HGB Conc 36 g/dL (31-36); Mean Corpuscular Hemoglobin 33 pg (27-31); Mean Corpuscular Volume 93 fL (80-94); Mean Platelet Volume 7.1 fL (7.4-10.4); Platelet Count 296 10^3/uL (150-450); Red Blood Count 4.35 10^6 /uL (4.18-5.48); Red Cell Distribution Width 14 % (10-15); White Blood Count 6.5 10^3/uL (3.5-10.8)
[2020-11-12 07:18] LABS: Albumin/Globulin Ratio 1.3 (1-3); Calcium 9.7 mg/dL (8.6-10.3); EGFR Non-African American 134.7 (>60); Globulin 3.1 g/dL (2-4); Phosphorus 3.9 mg/dL (2.5-5.0); Potassium 3.9 mmol/L (3.5-5.0); Total Bilirubin 0.4 mg/dL (0.2-1.0); Total Protein 7.1 g/dL (6.4-8.9)
[2020-11-12 09:48] LABS: Erythrocyte Sed Rate 47 mm/Hr (0-19)
[2020-11-12] MEDS: Nicotine PATCH 7 MG/24 HR PATCH TRANSDERM SCH (10:44)
[2020-11-12] MEDS: Potassium Chlor 10 meq TAB PO SCH (10:49)
[2020-11-12] MEDS: Vitamin THERAPEUTIC TAB PO SCH (10:49)
[2020-11-12] MEDS: DOXYcycline 100 MG in NS 0.9% 250 ml 250 ML IVPB SCH ×2 (10:52→12:44)
[2020-11-12 19:22] LABS: HIV 4th Generation Nonreactive (Nonreactive)
[2020-11-12] MEDS ORDERED: Gadoteridol (CONTRAST) 279.3 MG/ML 10 ML IV ONE (22:06)
[2020-11-13] MEDS: Nicotine PATCH 7 MG/24 HR PATCH TRANSDERM SCH (08:22)
[2020-11-13] MEDS: Vitamin THERAPEUTIC TAB PO SCH (08:22)
[2020-11-13] MEDS: Potassium Chlor 10 meq TAB PO SCH (08:22)
[2020-11-13] MEDS: Aspirin EC 325 mg TAB.EC PO PRN ×2 (10:12→22:14)
[2020-11-13 12:53] LABS: ABS Lymphocytes 0.5 10^3/ul (1.0-4.8); ABS Monocytes 0.9 10^3/ul (0-0.8); ABS Neutrophils 6.2 10^3/ul (1.5-7.7); Hematocrit 44 % (42-52); Hemoglobin 14.8 g/dL (14.0-18.0); Lymphocyte % 6.3 %; Mean Corpuscular HGB Conc 34 g/dL (31-36); Mean Corpuscular Hemoglobin 32 pg (27-31); Mean Corpuscular Volume 95 fL (80-94); Mean Platelet Volume 7.2 fL (7.4-10.4); Platelet Count 271 10^3/uL (150-450); Red Blood Count 4.62 10^6 /uL (4.18-5.48); Red Cell Distribution Width 14 % (10-15); White Blood Count 7.6 10^3/uL (3.5-10.8)
[2020-11-13 13:22] LABS: Albumin 3.7 g/dL (3.2-5.2); Albumin/Globulin Ratio 1.3 (1-3); C Reactive Protein 121.9 mg/L (<8.01); Calcium 9.2 mg/dL (8.6-10.3); EGFR Non-African American 132.2 (>60); Globulin 2.8 g/dL (2-4); Potassium 3.7 mmol/L (3.5-5.0); Total Bilirubin 0.4 mg/dL (0.2-1.0); Total Protein 6.5 g/dL (6.4-8.9)
[2020-11-13] MEDS ORDERED: Iohexol 300 (CONTRAST) 10 ML SDV IV ONE (19:17)
[2020-11-13 19:40] LABS: HSV 1 PCR, CSF Negative (Negative); HSV 2 PCR, CSF Negative (Negative)
[2020-11-14] MEDS ORDERED: Dextran 70/Hypromellose Tears Eye Drops 15 ml BTL (for Artificials Tears) BOTH EYES PRN (06:21)
[2020-11-14 07:02] LABS: ABS Eosinophils 0.1 10^3/ul (0-0.6); ABS Neutrophils 3.3 10^3/ul (1.5-7.7); Eosinophil % 1.6 %; Hematocrit 40 % (42-52); Lymphocyte % 18.7 %; Mean Corpuscular HGB Conc 35 g/dL (31-36); Mean Corpuscular Hemoglobin 33 pg (27-31); Mean Corpuscular Volume 93 fL (80-94); Mean Platelet Volume 7.1 fL (7.4-10.4); Platelet Count 313 10^3/uL (150-450); Red Blood Count 4.29 10^6 /uL (4.18-5.48); Red Cell Distribution Width 13 % (10-15); White Blood Count 5.5 10^3/uL (3.5-10.8)
[2020-11-14 07:21] LABS: Calcium 9.2 mg/dL (8.6-10.3); EGFR African American 141.7 (>60); EGFR Non-African American 117.1 (>60); Potassium 3.3 mmol/L (3.5-5.0)
[2020-11-14] MEDS ORDERED: Potassium Chloride LIQUID 20 MEQ/15 ML LIQUID PO ONE (07:37)
[2020-11-14] MEDS: Potassium Chlor 10 meq TAB PO SCH (10:03)
[2020-11-14] MEDS: Vitamin THERAPEUTIC TAB PO SCH (10:04)
[2020-11-14] MEDS: Nicotine PATCH 7 MG/24 HR PATCH TRANSDERM SCH (10:06)
[2020-11-14 14:43] LABS: B. garinii/B. afzellii PCR Negative (Negative); Lyme Disease Source CSF
[2020-11-14 14:57] LABS: Anaplasma phagocytophilum Negative (Negative); B. miyamotoi PCR, B Negative (Negative); Babesia divergens/MO-1 Negative (Negative); Babesia ducani Negative (Negative); Ehrlichia chaffeensis Negative (Negative); Ehrlichia ewingii/canis Negative (Negative); Ehrlichia muris eauclairensis Negative (Negative)
[2020-11-14 17:43] LABS: CSF West Nile Virus IgG Ab Negative (Negative); CSF West Nile Virus IgM Ab Negative (Negative)
[2020-11-15 05:24] LABS: ABS Basophils 0.1 10^3/ul (0-0.2); ABS Eosinophils 0.3 10^3/ul (0-0.6); ABS Lymphocytes 1.6 10^3/ul (1.0-4.8); ABS Monocytes 0.9 10^3/ul (0-0.8); ABS Neutrophils 2.9 10^3/ul (1.5-7.7); Eosinophil % 5.3 %; Hematocrit 41 % (42-52); Hemoglobin 14.2 g/dL (14.0-18.0); Lymphocyte % 28.1 %; Mean Corpuscular HGB Conc 35 g/dL (31-36); Mean Corpuscular Hemoglobin 32 pg (27-31); Mean Corpuscular Volume 92 fL (80-94); Mean Platelet Volume 6.9 fL (7.4-10.4); Nucleated Red Blood Cells % 0.1; Platelet Count 361 10^3/uL (150-450); Red Blood Count 4.44 10^6 /uL (4.18-5.48); Red Cell Distribution Width 14 % (10-15); White Blood Count 5.9 10^3/uL (3.5-10.8)
[2020-11-15 05:40] LABS: C Reactive Protein 96.5 mg/L (<8.01); Calcium 9.2 mg/dL (8.6-10.3); EGFR African American 154.3 (>60); EGFR Non-African American 127.5 (>60); Magnesium 1.9 mg/dL (1.9-2.7); Potassium 3.8 mmol/L (3.5-5.0)
[2020-11-15] MEDS: Nicotine PATCH 7 MG/24 HR PATCH TRANSDERM SCH (07:27)
[2020-11-15] MEDS: Vitamin THERAPEUTIC TAB PO SCH (07:28)
[2020-11-15] MEDS: Potassium Chlor 10 meq TAB PO SCH (07:29)
[2020-11-15 10:30] LABS: Free Erythrocyte Protoporphyri 13 mcg/dL (<20)
[2020-11-16] MEDS: Vitamin THERAPEUTIC TAB PO SCH (09:47)
[2020-11-16] MEDS: Potassium Chlor 10 meq TAB PO SCH (09:48)
[2020-11-16] MEDS: Nicotine PATCH 7 MG/24 HR PATCH TRANSDERM SCH (09:48)
[2020-11-16] MEDS ORDERED: fentaNYL 100 mcg/2 ml 50 MCG/ML VIAL ONE (13:09)
[2020-11-16] MEDS ORDERED: BREXPIPRAZOLE 2 MG PO SCH (17:00)
[2020-11-16 18:05] LABS: AGNA-1, CSF Negative titer (<1:2); Amphiphysin Ab, CSF Negative titer (<1:2); CRMP-5-IgG, CSF Negative titer (<1:2); PCA-1, CSF Negative titer (<1:2); PCA-2, CSF Negative titer (<1:2); PCA-Tr, CSF Negative titer (<1:2)
[2020-11-16 18:06] LABS: Anti-Glial/Neuronal Nuc Ab-1 A Negative titer (<1:240); Anti-Neuronal Nuclear Ab Type1 Negative titer (<1:240); Anti-Neuronal Nuclear Ab Type2 Negative titer (<1:240); Anti-Neuronal Nuclear Ab Type3 Negative titer (<1:240); CRMP-5 IgG Antibody Negative titer (<1:240); Purkinje Cell Cytoplasm Typ Tr Negative titer (<1:240); Purkinje Cell Cytoplasm Type 1 Negative titer (<1:240); Purkinje Cell Cytoplasm Type 2 Negative titer (<1:240)
[2020-11-16] MEDS: BREXPIPRAZOLE 0.5 MG PO SCH (21:52)
[2020-11-16] MEDS: BREXPIPRAZOLE 2 MG PO SCH (21:53)
[2020-11-17] MEDS: Nicotine PATCH 7 MG/24 HR PATCH TRANSDERM SCH (08:33)
[2020-11-17] MEDS: Potassium Chlor 10 meq TAB PO SCH (08:35)
[2020-11-17] MEDS: Vitamin THERAPEUTIC TAB PO SCH (08:35)
[2020-11-17] MEDS: BREXPIPRAZOLE 2 MG PO SCH ×2 (12:42→18:17)
[2020-11-17] MEDS: BREXPIPRAZOLE 0.5 MG PO SCH ×2 (12:42→18:18)
[2020-11-17] MEDS: DULoxetine DR 30 mg CAP PO SCH (16:44)
[2020-11-18] MEDS: DULoxetine DR 30 mg CAP PO SCH (10:19)
[2020-11-18] MEDS: Vitamin THERAPEUTIC TAB PO SCH (10:19)
[2020-11-18] MEDS: Potassium Chlor 10 meq TAB PO SCH (10:19)
[2020-11-18] MEDS: Nicotine PATCH 7 MG/24 HR PATCH TRANSDERM SCH (10:23)
[2020-11-18] MEDS: BREXPIPRAZOLE 0.5 MG PO SCH (15:47)
[2020-11-18] MEDS: BREXPIPRAZOLE 2 MG PO SCH (15:47)
[2020-11-19] MEDS: Vitamin THERAPEUTIC TAB PO SCH (08:38)
[2020-11-19] MEDS: Potassium Chlor 10 meq TAB PO SCH (08:39)
[2020-11-19] MEDS: DULoxetine DR 30 mg CAP PO SCH (08:40)
[2020-11-19] MEDS: Nicotine PATCH 7 MG/24 HR PATCH TRANSDERM SCH (08:40)
[2020-11-19] MEDS: BREXPIPRAZOLE 0.5 MG PO SCH (13:39)
[2020-11-19] MEDS: BREXPIPRAZOLE 2 MG PO SCH (13:39)
[2020-11-20] MEDS: BREXPIPRAZOLE 2 MG PO SCH ×2 (10:02→11:11)
[2020-11-20] MEDS: BREXPIPRAZOLE 0.5 MG PO SCH ×2 (10:02→11:11)
[2020-11-20] MEDS: Potassium Chlor 10 meq TAB PO SCH ×3 (10:03→11:12)
[2020-11-20] MEDS: Nicotine PATCH 7 MG/24 HR PATCH TRANSDERM SCH ×2 (10:03→10:23)
[2020-11-20] MEDS: Vitamin THERAPEUTIC TAB PO SCH ×3 (10:03→11:12)
[2020-11-20] MEDS ORDERED: Paliperidone SUSTENNA 234 MG/1.5 ML IM ONE (14:00)
[2020-11-21] MEDS: Nicotine PATCH 7 MG/24 HR PATCH TRANSDERM SCH (08:25)
[2020-11-21] MEDS: Vitamin THERAPEUTIC TAB PO SCH (08:26)
[2020-11-21] MEDS: Potassium Chlor 10 meq TAB PO SCH (08:26)
[2020-11-21] MEDS ORDERED: BREXPIPRAZOLE 4 MG PO SCH (09:00)
[2020-11-21] MEDS ORDERED: BREXPIPRAZOLE 0.5 MG PO SCH (09:00)
[2020-11-22] MEDS: Potassium Chlor 10 meq TAB PO SCH (08:40)
[2020-11-22] MEDS: Vitamin THERAPEUTIC TAB PO SCH (08:40)
[2020-11-22] MEDS: Nicotine PATCH 7 MG/24 HR PATCH TRANSDERM SCH (08:41)
[2020-11-23 08:30] VITALS: BP 135/86
[2020-11-23] MEDS: Nicotine PATCH 7 MG/24 HR PATCH TRANSDERM SCH (08:30)
[2020-11-23] MEDS: Vitamin THERAPEUTIC TAB PO SCH (08:30)
[2020-11-23] MEDS: Potassium Chlor 10 meq TAB PO SCH (08:30)
[2020-11-23] MEDS ORDERED: Paliperidone SUSTENNA 156 MG/1 ML IM ONE (11:18)
== END 2020-11-23 14:30 | disposition home or self-care (01) | DRG 750 ==
LOC: ED 14:34 → BSU 20:00 → MED 11-11 11:01 → BSU 11-16 17:46
PROVIDERS: ADMIT Psychiatry & Neurology Psychiatry; ATTEND Psychiatry & Neurology Psychiatry